=== PATIENT | male | born 1950 | race African-American/Black ===

== ENCOUNTER 2017-03-31 10:22 | Inpatient (IN) | payer MEDICARE, MEDICAID ==
[~2017-03-31] VITALS: Ht 167.6 cm; Wt 90.3 kg
[2017-03-31] VITALS (30 sets, daily range): BP systolic 128–166; BP diastolic 65–124
[~2017-03-31 10:22] MED LIST: ASPI-1159 PO; ATOR40TA70 PO; FS300 PO; GLIP10TA10 PO; OMEP20TA80 PO
[2017-03-31] MEDS ORDERED: FURO-151 PO (11:03)
[2017-03-31] MEDS ORDERED: ALOG12.5 PO (11:03)
[2017-03-31] MEDS ORDERED: CARV6.2548 PO (11:03)
[2017-03-31] MEDS ORDERED: ATOR-2 PO (11:03)
[2017-03-31] MEDS ORDERED: LOSA50TA20 PO (11:03)
[2017-03-31] MEDS ORDERED: AMLO2.5T45 PO (11:03)
[2017-03-31] MEDS ORDERED: FURO-152 PO (11:03)
[2017-03-31] MEDS ORDERED: INSULIN GLARGINE (11:49)
[2017-03-31] MEDS ORDERED: IODIXANOL 320MG/ML 200ML BOTTLE ONE (12:35)
[2017-03-31] MEDS ORDERED: LIDOCAINE HCL 1% 20ML VIAL (Pyxis) INJ ONE (12:36)
[2017-03-31] MEDS ORDERED: MIDAZOLAM HCL 2 MG/2 ML VIAL ONE ×3 (12:40→13:13)
[2017-03-31] MEDS ORDERED: FENTANYL CITRATE/PF 50MCG/ML 2ML VIAL ONE (12:40)
[2017-03-31] MEDS ORDERED: HYDROMORPHONE HCL/PF 2MG/ML (OR) ONE (12:47)
[2017-03-31] MEDS ORDERED: IOVERSOL 240MG/ML 100ML BOTTLE IV ONE (13:07)
[2017-03-31] MEDS ORDERED: HEPARIN SODIUM 1,000 UNIT/1ML VIAL IV ONE (13:09)
[2017-03-31] MEDS ORDERED: CLOPIDOGREL 75MG TABLET ONE (13:27)
[2017-03-31] MEDS ORDERED: ASPIRIN 325MG TABLET ONE (13:27)
[2017-03-31] MEDS ORDERED: ATROPINE SULFATE 1MG/10ML SYR IV PRN (13:45)
[2017-03-31] MEDS ORDERED: ACETAMINOPHEN 325MG TABLET PO PRN (13:45)
[2017-03-31] MEDS ORDERED: DEXTROSE 50% WATER 50ML SYRINGE IV PRN (13:45)
[2017-03-31] MEDS ORDERED: SODIUM CHLORIDE 0.45% 1,000 ML IV ONE (13:45)
[2017-03-31] MEDS: BLOOD SUGAR DIAGNOSTIC STRIP TEST SCH ×2 (16:50→20:46)
[2017-03-31] MEDS: FERROUS SULFATE 325MG TABLET PO SCH (17:20)
[2017-03-31] MEDS: GLIPIZIDE 10MG TABLET PO SCH (17:20)
[2017-03-31] MEDS: AMLODIPINE 2.5MG TABLET PO SCH (17:21)
[2017-03-31] MEDS: INSULIN LISPRO 100 UNITS/ML SUBCUT SCH ×2 (17:22→20:46)
[2017-03-31] MEDS: CARVEDILOL 6.25 MG TABLET PO SCH (20:49)
[2017-03-31] MEDS: LOSARTAN POTASSIUM 50 MG TABLET PO SCH (20:50)
[2017-03-31] MEDS ORDERED: ATORVASTATIN CALCIUM 40MG TABLET PO SCH (21:00)
[2017-04-01] VITALS (8 sets, daily range): BP systolic 136–150; BP diastolic 59–77
[2017-04-01] MEDS: BLOOD SUGAR DIAGNOSTIC STRIP TEST SCH ×2 (06:19→12:07)
[2017-04-01] MEDS: GLIPIZIDE 10MG TABLET PO SCH (06:29)
[2017-04-01] MEDS ORDERED: OMEPRAZOLE 20MG CAPSULE EXTENDED RELEASE PO SCH (06:50)
[2017-04-01 07:02] LABS: HEMATOCRIT. 31.9 % (42.0-52.0); HEMOGLOBIN. 10.9 g/dL (14.0-18.0); MEAN CORPUSCULAR VOLUME 90.6 fL (80.0-94.0); MEAN PLATELET VOLUME 9.3 fl (7.4-10.4); PLATELET 173 x1000/uL (130-400); RED BLOOD CELL COUNT 3.53 mill/uL (4.7-6.1)
[2017-04-01] MEDS: INSULIN LISPRO 100 UNITS/ML SUBCUT SCH ×2 (08:35→12:07)
[2017-04-01] MEDS: LOSARTAN POTASSIUM 50 MG TABLET PO SCH (08:36)
[2017-04-01] MEDS: FERROUS SULFATE 325MG TABLET PO SCH (08:36)
[2017-04-01] MEDS: CARVEDILOL 6.25 MG TABLET PO SCH (08:37)
[2017-04-01] MEDS: AMLODIPINE 2.5MG TABLET PO SCH (08:37)
[2017-04-01] MEDS ORDERED: FUROSEMIDE 20MG TABLET PO SCH (09:00)
[2017-04-01] MEDS ORDERED: CLOPIDOGREL 75MG TABLET PO SCH (09:00)
[2017-04-01] MEDS ORDERED: ASPIRIN 81MG EC TABLET PO SCH (09:00)
[2017-04-01 13:16] LABS: PLATELET ESTIMATE NORMAL
== END 2017-04-01 12:30 | disposition home or self-care (01) | DRG 300 ==
LOC: CCL 10:22 → 3WST 10:23
PROVIDERS: ADMIT Specialist; ATTEND Specialist
PROC: B41G1ZZ Fluoroscopy of Left Lower Extremity Arteries using Low Osmolar Contrast (ICD-10-PCS; principal; 2017-03-31)
DX: E11.51 Type 2 diabetes mellitus with diabetic peripheral angiopathy without gangrene (principal); I13.0 Hypertensive heart and chronic kidney disease with heart failure and stage 1 through stage 4 chronic kidney disease, or unspecified chronic kidney disease; N18.9 Chronic kidney disease, unspecified; I25.10 Atherosclerotic heart disease of native coronary artery without angina pectoris; E11.22 Type 2 diabetes mellitus with diabetic chronic kidney disease; E78.5 Hyperlipidemia, unspecified; I50.9 Heart failure, unspecified; Z79.84 Long term (current) use of oral hypoglycemic drugs; Z79.899 Other long term (current) drug therapy; Z95.1 Presence of aortocoronary bypass graft; Z79.82 Long term (current) use of aspirin; Z88.6 Allergy status to analgesic agent
CPT/HCPCS: 36415; 37226; 75710; 80048; 82962; 85025; 85347; C1725; C1769; C1893; C1894; J1170; J1644; J1815; J2250; J3010; J3490; Q9967

== ENCOUNTER 2017-07-21 06:31 | Inpatient (IN) | payer MEDICARE, MEDICAID ==
[2017-07-21] VITALS (24 sets, daily range): BP systolic 102–166; BP diastolic 37–102
[~2017-07-21] VITALS: Ht 170.2 cm; Wt 99.5 kg
[~2017-07-21 06:31] MED LIST changes: +ALOG12.5 PO; +AMLO2.5T45 PO; +ATOR-2 PO; -ATOR40TA70 PO; +CARV6.2548 PO; +FERR325T23 PO; -FS300 PO; +FURO-152 PO; +LOSA50TA20 PO; +OMEP20TA2 PO; -OMEP20TA80 PO
[2017-07-21] MEDS ORDERED: HYDR-4134 PO (08:18)
[2017-07-21] MEDS ORDERED: INSU100I24 SQ (08:18)
[2017-07-21] MEDS ORDERED: LOSA100T14 PO (08:18)
[2017-07-21] MEDS ORDERED: CLOP75TA33 PO (08:18)
[2017-07-21] MEDS ORDERED: CARV25TA47 PO (08:18)
[2017-07-21] MEDS ORDERED: CHOL100046 PO (08:18)
[2017-07-21] MEDS ORDERED: LIDOCAINE HCL 1% 20ML VIAL (Pyxis) INJ ONE (08:41)
[2017-07-21] MEDS ORDERED: IODIXANOL 320MG/ML 100 ML BOTTLE IV ONE (08:51)
[2017-07-21] MEDS ORDERED: MIDAZOLAM HCL 5 MG/5 ML VIAL ONE (08:52)
[2017-07-21] MEDS ORDERED: FENTANYL CITRATE/PF 50MCG/ML 2ML VIAL ONE ×2 (08:52→09:30)
[2017-07-21] MEDS ORDERED: HYDROMORPHONE HCL/PF 2MG/ML (OR) ONE (08:53)
[2017-07-21] MEDS ORDERED: IOVERSOL 240MG/ML 100ML BOTTLE IV ONE (09:52)
[2017-07-21] MEDS ORDERED: HEPARIN SODIUM 1,000 UNIT/1ML VIAL IV ONE (10:02)
[2017-07-21] MEDS ORDERED: CLOPIDOGREL 75MG TABLET ONE (10:49)
[2017-07-21] MEDS ORDERED: ACETAMINOPHEN 325MG TABLET PO PRN (11:00)
[2017-07-21] MEDS ORDERED: ATROPINE SULFATE 1MG/10ML SYR IV PRN (11:00)
[2017-07-21] MEDS ORDERED: ONDANSETRON HCL 4MG/2ML VIAL ONE (11:08)
[2017-07-21] MEDS ORDERED: METOCLOPRAMIDE HCL 10MG/2ML VIAL IV PRN (11:45)
[2017-07-21] MEDS: SODIUM CHLORIDE 0.45% 1,000 ML IV SCH ×2 (13:10→17:22)
[2017-07-22] VITALS (15 sets, daily range): BP systolic 97–155; BP diastolic 56–87
[2017-07-22] MEDS: SODIUM CHLORIDE 0.45% 1,000 ML IV SCH ×4 (01:20→20:50)
[2017-07-22 07:50] LABS: BASOPHILS % 0.4 % (0.0-2.0); EOSINOPHILS % 4.2 % (0.0-5.0); HEMATOCRIT. 30.3 % (42.0-52.0); LYMPHOCYTES % 9.7 % (20.0-50.0); MEAN CORPUSCULAR VOLUME 93.3 fL (80.0-94.0); MEAN PLATELET VOLUME 10.2 fl (7.4-10.4); MONOCYTES % 8.6 % (2.0-8.0); NEUTROPHILS % 77.1 % (40.0-76.0); PLATELET 153 x1000/uL (130-400); RED BLOOD CELL COUNT 3.24 mill/uL (4.7-6.1); RED CELL DISTRIBUTION WIDTH 14.4 % (11.6-14.6)
[2017-07-22] MEDS: CLOPIDOGREL 75MG TABLET PO SCH (07:53)
[2017-07-22] MEDS ORDERED: ASPIRIN 325MG TABLET PO SCH (09:00)
[2017-07-22] MEDS ORDERED: SODIUM POLYSTYRENE SULFONATE 15 G/60 ML BOT PO NR (12:30)
[2017-07-22] MEDS ORDERED: ATORVASTATIN CALCIUM 40MG TABLET PO SCH (21:00)
[2017-07-23 00:09] VITALS: BP 159/83
[2017-07-23 02:07] VITALS: BP 167/85
[2017-07-23 04:01] VITALS: BP 154/82
[2017-07-23] MEDS: SODIUM CHLORIDE 0.45% 1,000 ML IV SCH (05:02)
[2017-07-23 05:48] VITALS: BP 172/80
[2017-07-23 07:09] LABS: BASOPHILS % 0.5 % (0.0-2.0); EOSINOPHILS % 8.1 % (0.0-5.0); HEMATOCRIT. 31.8 % (42.0-52.0); HEMOGLOBIN. 10.8 g/dL (14.0-18.0); LYMPHOCYTES % 8.4 % (20.0-50.0); MEAN CORPUSCULAR HEMOGLOBIN 31.7 pg (28.0-32.0); MEAN CORPUSCULAR VOLUME 93.1 fL (80.0-94.0); MONOCYTES % 10.8 % (2.0-8.0); NEUTROPHILS % 72.2 % (40.0-76.0); PLATELET 152 x1000/uL (130-400); RED BLOOD CELL COUNT 3.41 mill/uL (4.7-6.1); RED CELL DISTRIBUTION WIDTH 14.3 % (11.6-14.6)
[2017-07-23 08:00] VITALS: BP 161/85
[2017-07-23] MEDS: CLOPIDOGREL 75MG TABLET PO SCH (08:38)
[2017-07-23 08:42] VITALS: BP 161/68
== END 2017-07-23 09:35 | disposition home or self-care (01) | DRG 252 ==
LOC: CCL 06:31 → 3WST 06:32
PROVIDERS: ADMIT Specialist; ATTEND Specialist
PROC: 047K3ZZ Dilation of Right Femoral Artery, Percutaneous Approach (ICD-10-PCS; principal; 2017-07-21)
PROC: B41F1ZZ Fluoroscopy of Right Lower Extremity Arteries using Low Osmolar Contrast (ICD-10-PCS; 2017-07-21)
DX: E11.51 Type 2 diabetes mellitus with diabetic peripheral angiopathy without gangrene (principal); N17.0 Acute kidney failure with tubular necrosis; I50.22 Chronic systolic (congestive) heart failure; I13.0 Hypertensive heart and chronic kidney disease with heart failure and stage 1 through stage 4 chronic kidney disease, or unspecified chronic kidney disease; I42.9 Cardiomyopathy, unspecified; E11.22 Type 2 diabetes mellitus with diabetic chronic kidney disease; E11.40 Type 2 diabetes mellitus with diabetic neuropathy, unspecified; E78.5 Hyperlipidemia, unspecified; E87.5 Hyperkalemia; I25.10 Atherosclerotic heart disease of native coronary artery without angina pectoris; N18.9 Chronic kidney disease, unspecified; Z79.4 Long term (current) use of insulin; Z87.891 Personal history of nicotine dependence; Z91.5 Personal history of self-harm; Z95.1 Presence of aortocoronary bypass graft
CPT/HCPCS: 36415; 37224; 75710; 80048; 82962; 85025; 85347; 85730; C1725; C1726; C1769; C1887; C1893; J1170; J1644; J2250; J2405; J2765; J3010; J3490; Q9967